=== PATIENT | female | born 1935 | race Hispanic/Latino ===

== ENCOUNTER 2016-08-23 16:19 | Observation (INO) | payer MEDICARE, OTHER ==
[2016-08-23 16:21] VITALS: BMI 24.8
[2016-08-23] MEDS ORDERED: Sodium Chloride 0.9% 500 ML IV STA (17:07)
--- NOTE | 2016-08-23 17:24 | ED PDOC ---
HPI: General Adult Time Seen by Provider: 08/23/16 16:44 Chief Complaint (Nursing): Upper Extremity Problem/Injury Chief Complaint (Provider): Seizure History Per: Patient History/Exam Limitations: no limitations Onset/Duration Of Symptoms: Days (Today) Have you had recent travel within the past 21 days to any of the following countries: [place], [place], [place] or [place]?: No Current Symptoms Are (Timing): Gone Now Additional Complaint(s): Pt. was at Dr. Diaz office for routine check up of her blood K and chronic back pain. There she had a shaking episode and lasted [address] Diaz witnessed and felt it was seizure so sent to the ED. No hx of seizure. Pt. currently has no dizziness on sitting still. Has chronic vertigo and on sudden movement gets room spinning. Pt. takes meclizine 2x a day for it. No headaches, weakness, numbness, tingles, fever, chest pain, palpitations, vision changes, syncope. Past Medical History Reviewed: Nursing Documentation, Vital Signs Vital Signs: Last Vital Signs Temp 97.4 F L 08/23/16 16:24 Pulse 105 H 08/23/16 17:00 Resp 18 08/23/16 17:00 BP 149/85 08/23/16 17:00 Pulse Ox 98 08/23/16 17:34 - Medical History PMH: HTN, Hypothyroidism (not compliant with medication) Denies: Asthma, Diabetes, HIV Other PMH: K level issues - Surgical History Surgical History: Denies: Pacemaker - Family History Family History: States: Unknown Family Hx - Living Arrangements Living Arrangements: With Family - Social History Current smoker - smoking cessation education provided: No Alcohol: None Drugs: Denies - Home Medications Home Medications: Ambulatory Orders Medication Instructions Recorded Aspirin [Aspirin EC] 81 mg PO DAILY #0 ect 08/13/14 amLODIPine [Norvasc] 2.5 mg PO DAILY #0 tab 08/13/14 Levothyroxine [Synthroid] 50 mcg PO DAILY 10/10/15 Potassium Chloride [Klor-Con 10] 10 meq PO DAILY 10/10/15 Desloratadine [Clarinex] 5 mg PO DAILY 07/08/16 Meclizine [Meclizine*] 25 mg PO Q6 PRN #20 tab 01/30/17 - Allergies Allergies/Adverse Reactions: Allergies Allergy/AdvReac Type Severity Reaction Status Date / Time high dose aspirin AdvReac PAIN Uncoded 08/23/16 16:23 Review of Systems ROS Statement: Except As Marked, All Systems Reviewed And Found Negative Neurological: Positive for: Seizures, Dizziness Physical Exam - Reviewed Nursing Documentation Reviewed: Yes Vital Signs Reviewed: Yes - Physical Exam Appears: Positive for: Non-toxic, No Acute Distress Head Exam: Positive for: ATRAUMATIC, NORMAL INSPECTION, NORMOCEPHALIC Skin: Positive for: Normal Color, Warm, DRY Eye Exam: Positive for: EOMI, Normal appearance, PERRL ENT: Positive for: Normal ENT Inspection Neck: Positive for: Normal, Painless ROM, Supple Cardiovascular/Chest: Positive for: Regular Rate, Rhythm. Negative for: Edema Respiratory: Positive for: CNT, Normal Breath Sounds Gastrointestinal/Abdominal: Positive for: Normal Exam, Bowel Sounds, Soft. Negative for: Tenderness Back: Positive for: Normal Inspection. Negative for: L CVA Tenderness, R CVA Tenderness Extremity: Positive for: Normal ROM. Negative for: Tenderness, Pedal Edema Neurologic/Psych: Positive for: Alert, knuckler II-XII, Oriented. Negative for: Motor/Sensory Deficits - Laboratory Results Result Diagrams: 08/23/16 17:32 08/23/16 17:32 Interpretation Of Abn Labs: no acute - ECG ECG: Positive for: Interpreted By Me, Viewed By Me ECG Rhythm: Positive for: Normal QRS, Normal ST Segment, Sinus Rhythm O2 Sat by Pulse Oximetry: 98 Pulse Ox Interpretation: Normal - Progress ED Course And Treament: 1900: Stable. AAOx3. Spoke with Dr. Diaz. Witnessed episode by him. Will admit tele obs. Will give further orders when pt. reaches floor. Disposition - Clinical Impression Clinical Impression: Seizure - Patient ED Disposition Is Patient to be Admitted: Yes Counseled Patient/Family Regarding: Studies Performed, Diagnosis - Disposition Disposition Time: 19:06 Condition: FAIR - POA Present On Arrival: None
[2016-08-23 17:46] LABS: BASO % 0.5 % (0.0-2.0); EOS # 0.1 K/uL (0.0-0.7); LYMPH # 2.1 K/uL (1.0-4.3); LYMPH % 32.8 % (20.0-40.0); MEAN CELL VOLUME 87.6 fl (81.0-99.0); MEAN CORPUSCULAR HEMOGLOBIN 30.1 pg (27.0-31.0); MEAN CORPUSCULAR HGB CONC 34.4 g/dL (33.0-37.0); MEAN PLATELET VOLUME 8.4 fl (7.2-11.7); MONO # 0.4 K/uL (0.0-0.8); NEUT # 3.8 K/uL (1.8-7.0); NEUT % 58.7 % (50.0-75.0); NRBC % 0.1 % (0.0-0.0); RED CELL DISTRIBUTION WIDTH 13.6 % (11.5-14.5); WHITE BLOOD COUNT 6.4 K/uL (4.8-10.8)
[2016-08-23 18:16] LABS: PARTIAL THROMBOPLASTIN TIME 25.9 SECONDS (23.3-32.5)
[2016-08-23 18:18] LABS: ALKALINE PHOSPHATASE 108 U/L (38-126); ALT/SGPT 127 U/L (9-52); AST/SGOT 117 U/L (14-36); BILIRUBIN,TOTAL 1.1 mg/dl (0.2-1.3); BLOOD UREA NITROGEN 16 mg/dl (7-17); CALCIUM 9.7 mg/dL (8.4-10.2); CARBON DIOXIDE 26 mmol/L (22-30); CHLORIDE 104 mmol/L (98-107); GFR AFRICAN-AMERICAN > 60; GLUCOSE,RANDOM 93 mg/dL (65-105); POTASSIUM 3.5 MMOL/L (3.6-5.0); SODIUM 139 mmol/l (132-148); TOTAL PROTEIN 7.9 G/DL (6.3-8.2)
--- NOTE | 2016-08-23 18:54 | CT ---
PROCEDURE: CT HEAD WITHOUT CONTRAST. HISTORY: headache COMPARISON: Comparison is made to the previous study dated 07/08/2026 TECHNIQUE: Axial computed tomography images were obtained through the head/brain without intravenous contrast. Radiation dose: Total exam DLP = 826.21 mGy-cm. FINDINGS: HEMORRHAGE: No intracranial hemorrhage. BRAIN: Foci of encephalomalacia at the parasagittal inferior frontal lobes are again seen suggestive of prior injury. Moderate atrophy and moderate chronic microvascular white matter ischemic disease are again seen. VENTRICLES: Unremarkable. No hydrocephalus. CALVARIUM: Unremarkable. PARANASAL SINUSES: Unremarkable as visualized. No significant inflammatory changes. MASTOID AIR CELLS: Unremarkable as visualized. No inflammatory changes. OTHER FINDINGS: None. IMPRESSION: No evidence of acute intracranial hemorrhage intracranial collection mass effect or midline shift. No significant interval change compared to the previous study dated 07/08/2016 as described above.
[2016-08-24 00:25] VITALS: RESP 18
[2016-08-24 00:55] LABS: RBC URINE < 1 /hpf (0-3); URINE BILIRUBIN NEGATIVE (NEGATIVE); URINE BLOOD NEGATIVE (NEGATIVE); URINE COLOR STRAW (YELLOW); URINE GLUCOSE (UA) NEG (Normal); URINE KETONE NEGATIVE (NEGATIVE); URINE LEUKOCYTE ESTERASE NEG Leu/uL (Negative); URINE PROTEIN NEGATIVE (NEGATIVE); URINE UROBILINOGEN 0.2-1.0 mg/dL (0.2-1.0); WBC URINE 1 /hpf (0-5)
[2016-08-24 08:31] LABS: THYROID STIMULATING HORMONE 4.46 mIU/ML (0.46-4.68)
[2016-08-24] MEDS ORDERED: Potassium Chloride 10 mEq ER Tab PO SCH (09:00)
[2016-08-24] MEDS ORDERED: Enoxaparin 40 mg Syringe SC SCH (09:00)
[2016-08-24] MEDS ORDERED: Levothyroxine 75 MCG TAB PO SCH (09:00)
[2016-08-24 10:06] VITALS: O2SAT 96
[2016-08-24] MEDS ORDERED: Gadodiamide 287 MG/ML VIAL (15ML) IV ONE (10:17)
[2016-08-24 12:14] LABS: BLOOD UREA NITROGEN 16 mg/dl (7-17); CARBON DIOXIDE 24 mmol/L (22-30); CHLORIDE 107 mmol/L (98-107); GFR AFRICAN-AMERICAN > 60; GLUCOSE,RANDOM 120 mg/dL (65-105); POTASSIUM 3.2 MMOL/L (3.6-5.0); SODIUM 137 mmol/l (132-148)
[2016-08-24 13:08] VITALS: BP 155/80; PULSE 91; TEMP 98.4
[2016-08-24] MEDS ORDERED: Potassium Chloride 40 mEq/30 ml LIQ UD PO ONE (13:22)
--- NOTE | 2016-08-24 13:35 | MRI ---
PROCEDURE: MRI BRAIN WITH AND WITHOUT CONTRAST HISTORY: seizure COMPARISON: August 08, 2016 MRI, CT scan head 08/23/2016 TECHNIQUE: Multiplanar, multisequence MR images of the brain were obtained with and without intravenous contrast enhancement. FINDINGS: HEMORRHAGE: None DWI: No evidence of an acute or early subacute infarction. BRAIN PARENCHYMA: No mass,mass effect or edema. Moderately severe cerebral cortical atrophy is once again noted. In addition moderate microvascular small-vessel changes are seen throughout the white matter tracts. 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 ENHANCEMENT: No abnormal intracranial enhancement. VENTRICLES: Unremarkable. No hydrocephalus. CRANIUM: Unremarkable. ORBITS: Grossly unremarkable. PARANASAL SINUSES/MASTOIDS: Clear VASCULAR SYSTEM: Skull base flow voids intact. OTHER FINDINGS: None . IMPRESSION: Moderate cerebral atrophy and small vessel change in the white matter tracts. No evidence of recent infarct or mass lesion.
--- NOTE | 2016-08-24 13:46 | CP.PCM.HP ---
History of Present Illness - History of Present Illness History of Present Illness: Pt. was seen in my office for routine check up of her blood K and chronic back pain. There she had a shaking episode and lasted 10 min. I witnessed and felt that was possible seizure so sent to the ED. No hx of seizure. Pt. currently has no dizziness on sitting still. Has chronic vertigo and on sudden movement gets room spinning. Pt. takes meclizine 2x a day for it. No headaches, weakness, numbness, tingles, fever, chest pain, palpitations, vision changes, syncope. Patient she had a recent EEG as per Dr Florentino was normal. The MRI does not reveled any acute condition. 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 Will increase the dose of antivert and hold Ambien. The patient present with a mild form of hypokalemia with no EKG changes. Will dc home. Will follow with neuro. Advice ENT f/u and renal for hypokalemia. Present on Admission - Present on Admission Any Indicators Present on Admission: No Review of Systems - Constitutional Constitutional: As Per HPI - EENT Eyes: As Per HPI Nose/Mouth/Throat: As Per HPI - Cardiovascular Cardiovascular: As Per HPI - Respiratory Respiratory: As Per HPI - Gastrointestinal Gastrointestinal: As Per HPI - Musculoskeletal Musculoskeletal: As Per HPI - Neurological Neurological: As Per HPI - Endocrine Endocrine: As Per HPI Past Patient History - Infectious Disease Hx of Infectious Diseases: None - Tetanus Immunizations Tetanus Immunization: Unknown - Past Medical History & Family History Past Medical History?: Yes - Past Social History Smoking Status: Never Smoked - CARDIAC Hx Cardiac Disorders: Yes Hx Hypertension: Yes - PULMONARY Hx Respiratory Disorders: Yes - NEUROLOGICAL Hx Neurological Disorder: Yes Hx Dizziness: Yes - HEENT Hx HEENT Problems: No - RENAL Hx Chronic Kidney Disease: Yes Hx Kidney Stones: Yes - ENDOCRINE/METABOLIC Hx Endocrine Disorders: Yes Hx Hypothyroidism: Yes - HEMATOLOGICAL/ONCOLOGICAL Hx Blood Disorders: No Hx AIDS: No Hx Human Immunodeficiency Virus (HIV): No - INTEGUMENTARY Hx Dermatological Problems: No - MUSCULOSKELETAL/RHEUMATOLOGICAL Hx Musculoskeletal Disorders: Yes Hx Falls: No - GASTROINTESTINAL Hx Gastrointestinal Disorders: No - GENITOURINARY/GYNECOLOGICAL Hx Genitourinary Disorders: No - PSYCHIATRIC Hx Psychophysiologic Disorder: No Hx Substance Use: No - SURGICAL HISTORY Hx Surgeries: Yes (renal lithotripsy 2 years ago) Hx Cataract Extraction: Yes Other/Comment: Lithotripsy 2 years ago, gallbladder - ANESTHESIA Hx Anesthesia: Yes Hx Anesthesia Reactions: No Meds Allergies/Adverse Reactions: Allergies Allergy/AdvReac Type Severity Reaction Status Date / Time high dose aspirin AdvReac PAIN Uncoded 08/23/16 16:23 Physical Exam - Constitutional Appears: Non-toxic - Head Exam Head Exam: ATRAUMATIC, NORMAL INSPECTION, NORMOCEPHALIC - Eye Exam Eye Exam: Normal appearance, PERRL - ENT Exam ENT Exam: Mucous Membranes Moist - Neck Exam Neck exam: Positive for: Full Rom - Respiratory Exam Respiratory Exam: Clear to Auscultation Bilateral - Cardiovascular Exam Cardiovascular Exam: REGULAR RHYTHM, +S1, +S2 - GI/Abdominal Exam GI & Abdominal Exam: Normal Bowel Sounds - Extremities Exam Extremities exam: Positive for: normal inspection - Neurological Exam Neurological exam: Alert, CN II-XII Intact, Normal Gait, Oriented x3, Reflexes Normal - Psychiatric Exam Psychiatric exam: Normal Affect - Skin Skin Exam: Normal Color Results - Vital Signs Recent Vital Signs: Last Vital Signs Temp 98.4 F 08/24/16 13:07 Pulse 91 H 08/24/16 13:07 Resp 18 08/24/16 13:07 BP 155/80 H 08/24/16 13:07 Pulse Ox 96 08/24/16 13:07 - Labs Result Diagrams: 08/23/16 17:32 08/24/16 11:30 Labs: Laboratory Results - last 24 hr 08/24/16 08/24/16 08/24/16 00:35 07:30 11:30 ESR 33 H Sodium 137 Potassium 3.2 L Chloride 107 Carbon Dioxide 24 Anion Gap 9 L BUN 16 Creatinine 0.5 L Est GFR ( Amer) > 60 Est GFR (Non-Af Amer) > 60 Random Glucose 120 H Calcium 9.0 Troponin I 0.0130 < 0.0120 Vitamin B12 > 1000 H TSH 3rd Generation 4.46 Urine Color Straw Urine Clarity Clear Urine pH 8.0 Ur Specific [place] 1.005 Urine Protein Negative Urine Glucose (UA) Neg Urine Ketones Negative Urine Blood Negative Urine Nitrate Negative Urine Bilirubin Negative Urine Urobilinogen 0.2-1.0 Ur Leukocyte Esterase Neg Urine RBC (Auto) < 1 Urine Microscopic WBC 1 Assessment & Plan (1) Seizure Status: Ruled-out (2) DVT prophylaxis Status: Acute (3) HTN (hypertension) Status: Chronic (4) Hypothyroid Status: Chronic (5) Palpitations Status: Resolved (6) Vertigo Status: Chronic (7) Anxiety Status: Chronic - Assessment and Plan (Free Text) Plan: Patient stable for dc Plan as above
[2016-08-24] MEDS ORDERED: Potassium Chloride 20 mEq/15 ml LIQ UD PO ONE (14:00)
[2016-08-24] MEDS ORDERED: [UNRECOGNIZED DRUG - REMARK] PO SCH (15:00)
[2016-08-24] MEDS ORDERED: Pantoprazole 40 mg EC Tab PO SCH (15:00)
[2016-08-24] MEDS ORDERED: Multivitamin With Minerals Tab PO SCH (15:00)
[2016-08-24] MEDS ORDERED: LOTEPREDNOL ETABONATE BOTHEYES SCH (17:00)
[2016-08-24 17:18] LABS: FOLATE > 20.0 ng/mL
[2016-08-24 17:39] LABS: CORTISOL AM 14.9 ug/dL (4.46-22.7)
--- NOTE | 2016-08-26 10:08 | CARD ---
APPROVED REPORT EKG Measurement Heart [id number] [id number] <Conclusion> Sinus tachycardia Otherwise normal ECG
== END 2016-08-24 15:30 | disposition home or self-care (01) ==
LOC: H.ER 16:19 → H.ERHOLD 19:03 → H.TEL 21:28
PROVIDERS: ADMIT Internal Medicine; ATTEND Internal Medicine
DX: R42 Dizziness and giddiness (principal); E87.6 Hypokalemia; R00.2 Palpitations; F41.9 Anxiety disorder, unspecified; G89.29 Other chronic pain; E03.9 Hypothyroidism, unspecified; I10 Essential (primary) hypertension; Z91.14 Patient's other noncompliance with medication regimen; Z79.82 Long term (current) use of aspirin
CPT/HCPCS: 36415; 70450; 70552; 80048; 80053; 81003; 82088; 82164; 82533; 82607; 82746; 82948; 83036; 84133; 84146; 84443; 84484; 85025; 85610; 85651; 85730; 86140; 99284; A9579; G0378; J1650; J7040

== ENCOUNTER 2017-07-10 19:50 | Emergency (ER) | payer MEDICARE ==
[2017-07-10 19:50] VITALS: BMI 24.8
[2017-07-10 20:16] VITALS: RESP 20; TEMP 99.2; O2SAT 99
--- NOTE | 2017-07-10 21:20 | ED PDOC ---
HPI: Hypertension/Hypotension Time Seen by Provider: 07/10/17 20:45 Chief Complaint (Nursing): High Blood Pressure Chief Complaint (Provider): High Blood Pressure History Per: Patient History/Exam Limitations: no limitations Onset/Duration Of Symptoms: Days (x today) Current Symptoms Are (Timing): Still Present Additional Complaint(s): Symone is an 82 year old female, with a history of high blood pressure, hypothyroidism, and anxiety, who presents to the emergency department for palpitations today. Patient reports she checked her blood pressure at home and measured at 190 systolic. Blood pressure was high despite Dr. Diaz doubling AmLODIPine from 2.5mg to 5 mg. Currently has shortness of breath and feels she cannot breath. PMD: Luis F Diaz Past Medical History Reviewed: Historical Data, Nursing Documentation, Vital Signs Vital Signs: Last Vital Signs Temp 99.2 F 07/10/17 20:14 Pulse 106 H 07/10/17 20:14 Resp 20 07/10/17 20:14 BP 133/90 07/10/17 20:14 Pulse Ox 99 07/10/17 20:14 - Medical History PMH: HTN, Hypothyroidism, Kidney Stones, Chronic Kidney Disease Denies: Asthma, Diabetes, HIV - Surgical History Surgical History: Denies: Pacemaker - Family History Family History: States: Unknown Family Hx - Home Medications Home Medications: Ambulatory Orders Medication Instructions Recorded Aspirin [Aspirin EC] 81 mg PO DAILY #0 ect 08/13/14 amLODIPine [Norvasc] 2.5 mg PO DAILY #0 tab 08/13/14 Levothyroxine [Synthroid] 75 mcg PO DAILY 10/10/15 Potassium Chloride [Klor-Con 10] 10 meq PO DAILY 10/10/15 Desloratadine [Clarinex] 5 mg PO DAILY 07/08/16 Meclizine [Meclizine*] 25 mg PO Q6 PRN #20 tab 07/08/16 Cetirizine HCl [All Day Allergy 10 mg PO DAILY 08/23/16 Relief] Clonazepam [Klonopin] 0.5 mg PO HS 08/23/16 Esomeprazole Magnesium [Nexium] 40 mg PO DAILY 08/23/16 Iron/Folic Acid/C/B6/B12/Zinc 1 each PO DAILY 08/23/16 [Corvita 150 Tablet] Loteprednol Etabonate [Lotemax] 1 drop BOTHEYES BID 08/23/16 Naproxen [Naprosyn Tab] 375 mg PO DAILY PRN 08/23/16 Zolpidem [Ambien] 10 mg PO HS PRN 08/23/16 - Allergies Allergies/Adverse Reactions: Allergies Allergy/AdvReac Type Severity Reaction Status Date / Time high dose aspirin AdvReac PAIN Uncoded 08/23/16 16:23 Review of Systems ROS Statement: Except As Marked, All Systems Reviewed And Found Negative Respiratory: Positive for: Shortness of Breath Physical Exam - Reviewed Nursing Documentation Reviewed: Yes Vital Signs Reviewed: Yes - Physical Exam Appears: Positive for: Uncomfortable ((+): Appears Anxious) Head Exam: Positive for: ATRAUMATIC, NORMAL INSPECTION, NORMOCEPHALIC Skin: Positive for: Normal Color, Warm, Dry Eye Exam: Positive for: Normal appearance, EOMI, PERRL ENT: Positive for: Normal ENT Inspection Neck: Positive for: Normal Cardiovascular/Chest: Positive for: Regular Rate, Rhythm Respiratory: Positive for: Normal Breath Sounds. Negative for: Respiratory Distress Gastrointestinal/Abdominal: Positive for: Normal Exam, Soft. Negative for: Tenderness Back: Positive for: Normal Inspection Extremity: Positive for: Normal ROM. Negative for: Deformity Neurologic/Psych: Positive for: Alert, Oriented (x 3). Negative for: Motor/ Sensory Deficits - Laboratory Results Result Diagrams: 07/10/17 20:45 07/10/17 20:45 - ECG O2 Sat by Pulse Oximetry: 99 (RA) Pulse Ox Interpretation: Normal Medical Decision Making Medical Decision Making: Time: 20:46 Impression(s): Chest Pain vs. ACS, PE Plan: - EKG - B-Type Natriuretic Peptide - BMP - Troponin I - CBC - D-Dimer - Partial Thromboplastin Time - Prothrombin Time - Chest X-Ray - Klonopin 0.5 mg PO STAT Time: 21:49 Chest X-Ray FINDINGS: Limitations: Radiographic technique - mild. Lungs: No consolidation. Pleural space: No pleural effusion. No pneumothorax. Heart: Mild cardiomegaly. Mediastinum: Atherosclerosis of thoracic aorta. Bones/joints: No acute fracture. Mild scoliosis. Degenerative changes of shoulders and spine. Few healed rib fractures. Upper abdomen: Surgical clips within RIGHT upper quadrant. IMPRESSION: 1. Mild cardiomegaly. 2. If symptoms persist, consider CT for further evaluation. 3. Incidental/non-acute findings are described above. 2200 Given age and risk factors, will OBS patient for continuous cardiac monitoring and repeat troponin/bloodwork. Case discussed with Dr. Diaz. Scribe Attestation: Documented by Philip Castano, acting as a scribe for Byron Chiang MD. Provider Scribe Attestation: All medical record entries made by the Scribe were at my direction and personally dictated by me. I have reviewed the chart and agree that the record accurately reflects my personal performance of the history, physical exam, medical decision making, and the department course for this patient. I have also personally directed, reviewed, and agree with the discharge instructions and disposition. Disposition - Clinical Impression Clinical Impression: Palpitations, Chest pain - Disposition Disposition Time: 22:00 Condition: GUARDED Forms: [employer] (Yoruba)
--- NOTE | 2017-07-10 21:50 | RAD ---
EXAM: XR Chest, 1 View CLINICAL HISTORY: 82 years old, female; Signs and symptoms; Cough; Symptoms not specified; Additional info: Cp TECHNIQUE: Frontal view of the chest. COMPARISON: No relevant prior studies available. FINDINGS: Limitations: Radiographic technique - mild. Lungs: No consolidation. Pleural space: No pleural effusion. No pneumothorax. Heart: Mild cardiomegaly. Mediastinum: Atherosclerosis of thoracic aorta. Bones/joints: No acute fracture. Mild scoliosis. Degenerative changes of shoulders and spine. Few healed rib fractures. Upper abdomen: Surgical clips within RIGHT upper quadrant. IMPRESSION: 1. Mild cardiomegaly. 2. If symptoms persist, consider CT for further evaluation. 3. Incidental/non-acute findings are described above.
[2017-07-10 21:54] LABS: BASO % 0.6 % (0.0-2.0); HEMOGLOBIN 13.6 g/dL (12.0-16.0); LYMPH # 1.8 K/uL (1.0-4.3); MEAN CELL VOLUME 87.8 fl (81.0-99.0); MEAN CORPUSCULAR HGB CONC 33.1 g/dL (33.0-37.0); MEAN PLATELET VOLUME 8.9 fl (7.2-11.7); MONO # 0.5 K/uL (0.0-0.8); MONO % 9.8 % (0.0-10.0); NEUT # 2.5 K/uL (1.8-7.0); NEUT % 51.6 % (50.0-75.0); NRBC % 0.5 % (0.0-0.0); RBC 4.68 Mil/uL (3.80-5.20); RED CELL DISTRIBUTION WIDTH 13.6 % (11.5-14.5); WHITE BLOOD COUNT 4.8 K/uL (4.8-10.8)
[2017-07-10 22:05] LABS: BLOOD UREA NITROGEN 19 mg/dl (7-17); CALCIUM 9.4 mg/dL (8.4-10.2); GFR AFRICAN-AMERICAN > 60; GFR NON-AFRICAN AMERICAN > 60
[2017-07-10 22:10] LABS: INR 1.2 (0.9-1.2); PROTHROMBIN TIME 13.1 Seconds (9.8-13.1)
[2017-07-10 22:11] LABS: PARTIAL THROMBOPLASTIN TIME 37.7 Seconds (25.6-37.1)
[2017-07-10 22:16] LABS: B-TYPE NATRIURETIC PEPTIDE 109 pg/ml (0-900)
[2017-07-11 07:16] VITALS: BP 137/79; PULSE 86
--- NOTE | 2017-07-11 11:19 | CARD ---
APPROVED REPORT EKG Measurement Heart [id number] [place] [id number] <Conclusion> Sinus tachycardia Possible Left atrial enlargement Low voltage QRS Borderline ECG
== END 2017-07-11 00:24 | disposition left against medical advice (07) ==
LOC: H.ER 19:50
DX: R07.89 Other chest pain (principal); R00.2 Palpitations; I12.9 Hypertensive chronic kidney disease with stage 1 through stage 4 chronic kidney disease, or unspecified chronic kidney disease; E03.9 Hypothyroidism, unspecified; Z79.82 Long term (current) use of aspirin

== ENCOUNTER 2018-08-12 13:21 | Observation (INO) | payer MEDICARE, OTHER ==
[2018-08-12] MEDS ORDERED: Sodium Chloride 0.9% 1,000 ML IV STA (14:05)
--- NOTE | 2018-08-12 14:23 | ED PDOC ---
HPI: Back Time Seen by Provider: 08/12/18 13:53 Chief Complaint (Nursing): Back Pain Chief Complaint (Provider): Back Pain History Per: Patient, Family History/Exam Limitations: language barrier Onset/Duration Of Symptoms: Days (x1 day) Current Symptoms Are (Timing): Still Present Additional Complaint(s): Symone Back is a 83 year old female with a past medical history of HTN, hypothyroidism, kidney stone, and TIA, who presents to the emergency department complaining of severe right sided back pain, onset x1 day. Patient's family member, who was present in the room, states that he gave the patient naproxen yesterday and took her to the urgent care facility. They checked her urine and advised her to use a heating pad and take Tylenol only, which she took today. Patient has had no improvements in symptoms. She has had some associated diarrhea and chills, but denies any urinary problems, vomiting, or fever. Patient's family further states that there is a stomach virus going on in the family. PMD: Luis F Diaz Past Medical History Reviewed: Historical Data, Nursing Documentation Vital Signs: Last Vital Signs Temp 97.0 F L 08/12/18 13:23 Pulse 94 H 08/12/18 13:23 Resp 16 08/12/18 13:23 BP 173/83 H 08/12/18 13:23 Pulse Ox 97 08/12/18 13:23 - Medical History PMH: Anxiety, HTN, Hypothyroidism, Kidney Stones, Chronic Kidney Disease, TIA Denies: Asthma, Diabetes, HIV Other PMH: compression fracture of T-12 - Surgical History Surgical History: Appendectomy, Cholecystectomy Denies: Pacemaker - Family History Family History: States: Unknown Family Hx - Home Medications Home Medications: Ambulatory Orders Medication Instructions Recorded Aspirin [Aspirin EC] 81 mg PO DAILY #0 ect 08/13/14 Levothyroxine [Synthroid] 75 mcg PO DAILY 10/10/15 Potassium Chloride [Klor-Con 10] 10 meq PO DAILY 10/10/15 Cetirizine HCl [All Day Allergy 10 mg PO DAILY 08/23/16 Relief] Zolpidem [Ambien] 10 mg PO HS PRN 08/23/16 amLODIPine [Norvasc] 5 mg PO DAILY 07/10/17 - Allergies Allergies/Adverse Reactions: Allergies Allergy/AdvReac Type Severity Reaction Status Date / Time high dose aspirin AdvReac PAIN Uncoded 08/12/18 13:23 Review of Systems ROS Statement: Except As Marked, All Systems Reviewed And Found Negative Constitutional: Positive for: Chills. Negative for: Fever Gastrointestinal: Positive for: Diarrhea. Negative for: Vomiting Genitourinary Female: Negative for: Dysuria, Frequency, Incontinence, Hematuria Musculoskeletal: Positive for: Back Pain Physical Exam - Reviewed Nursing Documentation Reviewed: Yes Vital Signs Reviewed: Yes - Physical Exam Appears: Positive for: Non-toxic, Uncomfortable Head Exam: Positive for: ATRAUMATIC, NORMOCEPHALIC Skin: Positive for: Normal Color, Warm, Dry Eye Exam: Positive for: Normal appearance Cardiovascular/Chest: Positive for: Regular Rate, Rhythm. Negative for: Murmur Respiratory: Positive for: Normal Breath Sounds. Negative for: Respiratory Distress Gastrointestinal/Abdominal: Positive for: Tenderness (RLQ Tenderness) Back: Positive for: R CVA Tenderness (questionable ). Negative for: L CVA [place], Vertebral Tenderness Extremity: Positive for: Normal ROM. Negative for: Pedal Edema, Deformity Neurologic/Psych: Positive for: Alert, Oriented. Negative for: Motor/Sensory Deficits - Laboratory Results Result Diagrams: 08/12/18 14:40 08/12/18 14:40 - ECG ECG Rhythm: Positive for: Normal QRS, Sinus Rhythm (normal), Nonspecific Changes (ST) Rate: 83 O2 Sat by Pulse Oximetry: 97 (RA) Pulse Ox Interpretation: Normal - Progress Re-evaluation Time: 17:00 Condition: Re-examined, Improving,but remains with symptoms Medical Decision Making Medical Decision Making: Time: 1405 Impression: Right sided flank pain --Differential diagnosis includes but is not limited to UTI, Pyelonephritis, Nephrolithiasis Plan: --VBG shock panel --CT abdomen and pelvis --EKG --BMP --ED urine dipstick --CBC with differential --Toradol 15 mg IVP --Sodium chloride 1,000 ml --Blood culture --Urine culture --Urinalysis Time: 165 CT abd and pelvis FINDINGS: LOWER THORAX: Cardiomegaly. No pulmonary vascular congestion or pleural effusion. No definite infiltrate bilaterally. LIVER: Subtle lobular margins to the periphery of the liver suggests cirrhosis. No mass or intrahepatic biliary dilatation. GALLBLADDER AND BILE DUCTS: Prior cholecystectomy. PANCREAS: Unremarkable. No gross lesion or ductal dilatation. SPLEEN: Splenomegaly identified without mass, with the spleen measuring up to 13.4 cm ADRENALS: Unremarkable. No mass. KIDNEYS AND URETERS: Multiple bilateral renal cysts are identified including 3.3 cm midpole right renal cyst and a 2.7 cm midpole left renal cyst. Additional lucencies are seen in both renal parenchyma too small to characterize further. Intrarenal calculi are infrequent abut punctate in size at the right. A 6.0 mm upper pole intrarenal calculus is nonobstructive at the left. Prominent bilateral extrarenal pelves are identified at the right greater than left kidney. Interval removal prior left double-J ureteral stent. VASCULATURE: Nonaneurysmal abdominal aortic calcific atherosclerotic changes are identified. Further, extensive varices are identified at the this splenorenal venous distribution and very minimally at the gastrohepatic ligament indicating hepatofugal blood flow. BOWEL: Unremarkable. No obstruction. No gross mural thickening. APPENDIX: No CT evidence of appendicitis. PERITONEUM: Unremarkable. No free fluid. No free air. LYMPH NODES: Unremarkable. No enlarged lymph nodes. BLADDER: Unremarkable. REPRODUCTIVE: Unremarkable. BONES: Chronic anterior wedge compression fracture T12. Advanced multilevel degenerative disc disease is reiterated as well as facet arthropathy with stable degenerative grade 1 spondylolisthesis L5-S1. OTHER FINDINGS: None. IMPRESSION: 1. No obstructive uropathy bilaterally. Infrequent bilateral intrarenal calculi are identified which are nonobstructive. Bilateral renal cysts are noted as well as right greater than left extrarenal pelvis. Removal of prior left u reteral stent noted. 2. Cirrhotic liver with evidence of hepatofugal blood flow again evident. Ex tensive a pattern renal varices noted. Minimal gastrohepatic ligament varices evident. 3. Prior cholecystectomy reiterated. [address] Diaz who will admit to his service and assume care. Bridging orders will be placed to facilitate transfer. Scribe Attestation: Documented by Jayden Waters, acting as a scribe for Mary Gregory MD. Provider Scribe Attestation: All medical record entries made by the Scribe were at my direction and personally dictated by me. I have reviewed the chart and agree that the record accurately reflects my personal performance of the history, physical exam, medical decision making, and the department course for this patient. I have also personally directed, reviewed, and agree with the discharge instructions and disposition. Disposition - Clinical Impression Clinical Impression: Back pain - Patient ED Disposition Is Patient to be Admitted: Yes Discussed With : Luis F Diaz Doctor Will See Patient In The: Hospital Counseled Patient/Family Regarding: Studies Performed, Diagnosis - Disposition Disposition Time: 17:30 Condition: FAIR - Pt Status Changed To: Hospital Disposition Of: Observation - POA Present On Arrival: None
[2018-08-12 14:39] LABS: VENOUS BLOOD GAS BASE EXCESS 1.6 mmol/L (0.0-2.0); VENOUS BLOOD GAS PCO2 34 mmHg (40-60); VENOUS BLOOD GAS PO2 36 mm/Hg (30-55); VENOUS BLOOD PH 7.47 (7.32-7.43)
[2018-08-12 15:01] LABS: BASO % 0.4 % (0.0-2.0); EOS % 0.6 % (0.0-4.0); HEMOGLOBIN 14.9 g/dL (12.0-16.0); LYMPH # 1.1 K/uL (1.0-4.3); LYMPH % 24.2 % (20.0-40.0); MEAN CELL VOLUME 86.4 fl (81.0-99.0); MEAN CORPUSCULAR HEMOGLOBIN 29.7 pg (27.0-31.0); MEAN CORPUSCULAR HGB CONC 34.4 g/dL (33.0-37.0); MONO # 0.2 K/uL (0.0-0.8); MONO % 4.1 % (0.0-10.0); NEUT # 3.2 K/uL (1.8-7.0); NEUT % 70.7 % (50.0-75.0); NRBC % 0.2 % (0.0-0.0); RBC 5.01 Mil/uL (3.80-5.20); RED CELL DISTRIBUTION WIDTH 13.4 % (11.5-14.5); WHITE BLOOD COUNT 4.6 K/uL (4.8-10.8)
[2018-08-12 15:14] LABS: BLOOD UREA NITROGEN 16 mg/dl (7-17); CALCIUM 9.4 mg/dL (8.4-10.2); GFR NON-AFRICAN AMERICAN > 60
[2018-08-12] MEDS ORDERED: Potassium Chloride 20 mEq ER Tab PO ONE ×4 (15:16→19:54)
[2018-08-12] MEDS ORDERED: Iohexol 300 100 ML IJ ONE (16:02)
[2018-08-12 16:09] LABS: SQUAMOUS EPITHIAL < 1 /hpf (0-5); URINE BACTERIA RARE (<OCC); URINE BILIRUBIN NEGATIVE (NEGATIVE); URINE BLOOD SMALL (NEGATIVE); URINE CLARITY SLIGHTY-CLOUDY (Clear); URINE COLOR YELLOW (YELLOW); URINE GLUCOSE (UA) NEG (NEGATIVE); URINE HYALINE CAST 0-2 /hpf (0-2); URINE LEUKOCYTE ESTERASE NEG Leu/uL (Negative); URINE PROTEIN 100 mg/dL (NEGATIVE)
--- NOTE | 2018-08-12 16:59 | CT ---
Date of service: 08/12/2018 PROCEDURE: CT Abdomen and Pelvis with contrast HISTORY: right flank pain COMPARISON: None. TECHNIQUE: Following oral and intravenous contrast administration, a CT examination of the abdomen and pelvis was performed from the domes of the diaphragms to the symphysis pubis with reformatted datasets provided not only axial but also sagittal and coronal series. Contrast dose: Omnipaque 300, 85 cc Radiation dose: Total exam DLP = 242.83 mGy-cm. This CT exam was performed using one or more of the following dose reduction techniques: Automated exposure control, adjustment of the mA and/or kV according to patient size, and/or use of iterative reconstruction technique. FINDINGS: LOWER THORAX: Cardiomegaly. No pulmonary vascular congestion or pleural effusion. No definite infiltrate bilaterally. LIVER: Subtle lobular margins to the periphery of the liver suggests cirrhosis. No mass or intrahepatic biliary dilatation. GALLBLADDER AND BILE DUCTS: Prior cholecystectomy. PANCREAS: Unremarkable. No gross lesion or ductal dilatation. SPLEEN: Splenomegaly identified without mass, with the spleen measuring up to 13.4 cm ADRENALS: Unremarkable. No mass. KIDNEYS AND URETERS: Multiple bilateral renal cysts are identified including 3.3 cm midpole right renal cyst and a 2.7 cm midpole left renal cyst. Additional lucencies are seen in both renal parenchyma too small to characterize further. Intrarenal calculi are infrequent abut punctate in size at the right. A 6.0 mm upper pole intrarenal calculus is nonobstructive at the left. Prominent bilateral extrarenal pelves are identified at the right greater than left kidney. Interval removal prior left double-J ureteral stent. VASCULATURE: Nonaneurysmal abdominal aortic calcific atherosclerotic changes are identified. Further, extensive varices are identified at the this splenorenal venous distribution and very minimally at the gastrohepatic ligament indicating hepatofugal blood flow. BOWEL: Unremarkable. No obstruction. No gross mural thickening. APPENDIX: No CT evidence of appendicitis. PERITONEUM: Unremarkable. No free fluid. No free air. LYMPH NODES: Unremarkable. No enlarged lymph nodes. BLADDER: Unremarkable. REPRODUCTIVE: Unremarkable. BONES: Chronic anterior wedge compression fracture T12. Advanced multilevel degenerative disc disease is reiterated as well as facet arthropathy with stable degenerative grade 1 spondylolisthesis L5-S1. OTHER FINDINGS: None. IMPRESSION: 1. No obstructive uropathy bilaterally. Infrequent bilateral intrarenal calculi are identified which are nonobstructive. Bilateral renal cysts are noted as well as right greater than left extrarenal pelvis. Removal of prior left ureteral stent noted. 2. Cirrhotic liver with evidence of hepatofugal blood flow again evident. Extensive a pattern renal varices noted. Minimal gastrohepatic ligament varices evident. 3. Prior cholecystectomy reiterated.
[2018-08-12] MEDS ORDERED: Fluorescein 1 mg Ophthalmic Strip ONE (18:17)
[2018-08-12] MEDS ORDERED: Patient's Own Med (Zolpidem [Ambien] 10 MG) PO PRN (18:23)
[2018-08-12] MEDS ORDERED: Dexamethasone 4 mg/1 ml ONE (21:48)
[2018-08-12] MEDS ORDERED: Morphine 4 MG/ML VIAL ONE (21:48)
[2018-08-12] MEDS: Morphine 4 MG/ML VIAL IVP PRN (22:22)
[2018-08-12] MEDS ORDERED: Lidocaine 5% Patch TD ONE (22:51)
[2018-08-12] MEDS ORDERED: Lidocaine 5% Patch TD SCH ×2 (23:00)
[2018-08-13] MEDS: Lidocaine 5% Patch TD SCH ×2 (01:15→22:36)
[2018-08-13 07:00] LABS: BASO % 0.1 % (0.0-2.0); EOS % 0.1 % (0.0-4.0); HEMOGLOBIN 14.8 g/dL (12.0-16.0); LYMPH # 0.7 K/uL (1.0-4.3); LYMPH % 18.6 % (20.0-40.0); MEAN CELL VOLUME 86.9 fl (81.0-99.0); MEAN CORPUSCULAR HEMOGLOBIN 29.8 pg (27.0-31.0); MEAN CORPUSCULAR HGB CONC 34.3 g/dL (33.0-37.0); MONO # 0.1 K/uL (0.0-0.8); MONO % 1.8 % (0.0-10.0); NEUT # 2.8 K/uL (1.8-7.0); NEUT % 79.4 % (50.0-75.0); NRBC % 0.3 % (0.0-0.0); RBC 4.98 Mil/uL (3.80-5.20); RED CELL DISTRIBUTION WIDTH 13.4 % (11.5-14.5); WHITE BLOOD COUNT 3.6 K/uL (4.8-10.8)
[2018-08-13] MEDS: Levothyroxine 75 MCG TAB PO SCH (07:06)
[2018-08-13 07:10] LABS: ALBUMIN 3.9 g/dL (3.5-5.0); ALT/SGPT 108 U/L (9-52); AST/SGOT 108 U/L (14-36); BILIRUBIN,DIRECT 0.4 mg/ml (0.0-0.4); BLOOD UREA NITROGEN 12 mg/dl (7-17); CALCIUM 9.2 mg/dL (8.4-10.2); GFR NON-AFRICAN AMERICAN > 60
[2018-08-13] MEDS: Morphine 4 MG/ML VIAL IVP PRN ×2 (08:56→13:53)
[2018-08-13] MEDS: Potassium Chloride 10 mEq ER Tab PO SCH (08:58)
[2018-08-13 11:43] VITALS: BMI 23.5
--- NOTE | 2018-08-13 12:07 | CP.PCM.CON ---
History of Present Illness - History of Present Illness History of Present Illness: Patient seen and examined for back pain. Patient described as localized, right- sided back pain currently without radiculopathy which patient has had in the past. To get MRI today. Patient unable to describe the character of the pain. For possible injection tomorrow. Past Patient History - Infectious Disease Hx of Infectious Diseases: None - Tetanus Immunizations Tetanus Immunization: Unknown - Past Medical History & Family History Past Medical History?: Yes - Past Social History Smoking Status: Light Smoker < 10 Cigarettes Daily - CARDIAC Hx Cardiac Disorders: Yes Hx Hypertension: Yes - PULMONARY Hx Respiratory Disorders: No Hx Asthma: No - NEUROLOGICAL Hx Neurological Disorder: Yes Hx Transient Ischemic Attacks (TIA): Yes - HEENT Hx HEENT Problems: Yes Hx Sinusitis: Yes Other/Comment: Use eyeglasses - RENAL Hx Chronic Kidney Disease: Yes - ENDOCRINE/METABOLIC Hx Endocrine Disorders: Yes - HEMATOLOGICAL/ONCOLOGICAL Hx Blood Disorders: No Hx Human Immunodeficiency Virus (HIV): No - INTEGUMENTARY Hx Dermatological Problems: No - MUSCULOSKELETAL/RHEUMATOLOGICAL Hx Musculoskeletal Disorders: Yes Hx Falls: Yes - GASTROINTESTINAL Hx Gastrointestinal Disorders: No - GENITOURINARY/GYNECOLOGICAL Hx Genitourinary Disorders: No - PSYCHIATRIC Hx Psychophysiologic Disorder: No Hx Substance Use: No - SURGICAL HISTORY Hx Surgeries: Yes Hx Appendectomy: Yes Hx Cholecystectomy: Yes - ANESTHESIA Hx Anesthesia: Yes Hx Anesthesia Reactions: No Hx Malignant Hyperthermia: No Has any member of the family had a problem w/ anesthesia?: No Meds Allergies/Adverse Reactions: Allergies Allergy/AdvReac Type Severity Reaction Status Date / Time high dose aspirin AdvReac PAIN Uncoded 08/12/18 13:23 - Medications Medications: Current Medications Amlodipine Besylate (Norvasc) 5 mg PO DAILY [facility] Last Admin: 08/13/18 08:57 Dose: 5 mg Aspirin (Ecotrin) 81 mg PO DAILY [facility] Last Admin: 08/13/18 08:58 Dose: 81 mg Dexamethasone (Decadron) 4 mg PO Q12 [facility] Last Admin: 08/13/18 08:58 Dose: 4 mg Diazepam (Valium) 2 mg PO Q8 PRN PRN Reason: Muscle spasm Last Admin: 08/13/18 08:56 Dose: 2 mg Enoxaparin Sodium (Lovenox) 40 mg SC DAILY [facility]; Protocol Levothyroxine Sodium (Synthroid) 75 mcg PO DAILY@0630 [facility] Last Admin: 08/13/18 07:06 Dose: 75 mcg Lidocaine (Lidoderm) 1 ea TD Q24H [facility] Last Admin: 08/13/18 01:15 Dose: 1 ea Loratadine (Claritin) 10 mg PO DAILY [facility] Last Admin: 08/13/18 08:59 Dose: 10 mg Morphine Sulfate (Morphine) 4 mg IVP Q4 PRN PRN Reason: Pain, severe (8-10) Last Admin: 08/13/18 08:56 Dose: 4 mg Potassium Chloride (Klor-Con 10) 10 meq PO DAILY [facility] Last Admin: 08/13/18 08:58 Dose: 10 meq Results - Vital Signs Recent Vital Signs: Last Vital Signs Temp 97.5 F L 08/13/18 08:14 Pulse 93 H 08/13/18 08:57 Resp 20 08/13/18 08:14 BP 155/79 H 08/13/18 08:57 Pulse Ox 97 08/13/18 08:14 - Labs Result Diagrams: 08/13/18 06:40 08/13/18 06:40 Labs: Laboratory Results - last 24 hr 08/12/18 08/12/18 08/12/18 14:09 14:40 14:40 WBC 4.6 L RBC 5.01 Hgb 14.9 Hct 43.3 MCV 86.4 MCH 29.7 MCHC 34.4 RDW 13.4 Plt Count 95 L MPV 9.0 Neut % (Auto) 70.7 Lymph % (Auto) 24.2 [place] % (Auto) 4.1 Eos % (Auto) 0.6 Baso % (Auto) 0.4 Neut # (Auto) 3.2 Lymph # (Auto) 1.1 [place] # (Auto) 0.2 Eos # (Auto) 0.0 Baso # (Auto) 0.0 pO2 36 VBG pH 7.47 H VBG pCO2 34 L VBG HCO3 25.4 VBG Total CO2 25.7 VBG O2 Sat (Calc) 76.6 H VBG Base Excess 1.6 VBG Potassium 3.2 L Sodium 136.0 140 Chloride 104.0 100 Glucose 156 H Lactate 1.9 FiO2 21.0 Potassium 3.3 L Carbon Dioxide 24 Anion Gap 19 BUN 16 Creatinine 0.7 Est GFR ( Amer) > 60 Est GFR (Non-Af Amer) > 60 Random Glucose 155 H Calcium 9.4 Total Bilirubin Direct Bilirubin AST ALT Alkaline Phosphatase Ammonia Total Protein Albumin Globulin Albumin/Globulin Ratio TSH 3rd Generation Venous Blood Potassium 3.2 L Urine Color Urine Clarity Urine pH Ur Specific [place] Urine Protein Urine Glucose (UA) Urine Ketones Urine Blood Urine Nitrate Urine Bilirubin Urine Urobilinogen Ur Leukocyte Esterase Urine RBC (Auto) Urine Microscopic WBC Ur Squamous Epith Cells Urine Bacteria Hyaline Casts 08/12/18 08/13/18 08/13/18 15:40 06:40 06:40 WBC 3.6 L RBC 4.98 Hgb 14.8 Hct 43.2 MCV 86.9 MCH 29.8 MCHC 34.3 RDW 13.4 Plt Count 114 L MPV 9.0 Neut % (Auto) 79.4 H Lymph % (Auto) 18.6 L [place] % (Auto) 1.8 Eos % (Auto) 0.1 Baso % (Auto) 0.1 Neut # (Auto) 2.8 Lymph # (Auto) 0.7 L [place] # (Auto) 0.1 Eos # (Auto) 0.0 Baso # (Auto) 0.0 pO2 VBG pH VBG pCO2 VBG HCO3 VBG Total CO2 VBG O2 Sat (Calc) VBG Base Excess VBG Potassium Sodium 139 Chloride 105 Glucose Lactate FiO2 Potassium 4.4 Carbon Dioxide 23 Anion Gap 15 BUN 12 Creatinine 0.6 L Est GFR ( Amer) > 60 Est GFR (Non-Af Amer) > 60 Random Glucose 136 H Calcium 9.2 Total Bilirubin 1.3 Direct Bilirubin 0.4 AST 108 H ALT 108 H Alkaline Phosphatase 146 H Ammonia Total Protein 7.9 Albumin 3.9 Globulin 4.0 H Albumin/Globulin Ratio 1.0 TSH 3rd Generation 2.18 Venous Blood Potassium Urine Color Yellow Urine Clarity Slighty-cloudy Urine pH 6.0 Ur Specific [place] 1.015 Urine Protein 100 Urine Glucose (UA) Neg Urine Ketones 20 Urine Blood Small Urine Nitrate Negative Urine Bilirubin Negative Urine Urobilinogen 4.0 H Ur Leukocyte Esterase Neg Urine RBC (Auto) 2 Urine Microscopic WBC 3 Ur Squamous Epith Cells < 1 Urine Bacteria Rare Hyaline Casts 0-2 08/13/18 06:40 WBC RBC Hgb Hct MCV MCH MCHC RDW Plt Count MPV Neut % (Auto) Lymph % (Auto) [place] % (Auto) Eos % (Auto) Baso % (Auto) Neut # (Auto) Lymph # (Auto) [place] # (Auto) Eos # (Auto) Baso # (Auto) pO2 VBG pH VBG pCO2 VBG HCO3 VBG Total CO2 VBG O2 Sat (Calc) VBG Base Excess VBG Potassium Sodium Chloride Glucose Lactate FiO2 Potassium Carbon Dioxide Anion Gap BUN Creatinine Est GFR ( Amer) Est GFR (Non-Af Amer) Random Glucose Calcium Total Bilirubin Direct Bilirubin AST ALT Alkaline Phosphatase Ammonia 20 Total Protein Albumin Globulin Albumin/Globulin Ratio TSH 3rd Generation Venous Blood Potassium Urine Color Urine Clarity Urine pH Ur Specific [place] Urine Protein Urine Glucose (UA) Urine Ketones Urine Blood Urine Nitrate Urine Bilirubin Urine Urobilinogen Ur Leukocyte Esterase Urine RBC (Auto) Urine Microscopic WBC Ur Squamous Epith Cells Urine Bacteria Hyaline Casts
--- NOTE | 2018-08-13 12:11 | CP.PCM.HP ---
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 The patient had same naproxen yesterday and took her to the urgent care facility. Patient has had no improvements in symptoms. At present she still c/o same severe pain in the rt side of the lower back. She received morphine, steroids,benzo with no significant improvement. An MRI pending. Present on Admission - Present on Admission Any Indicators Present on Admission: No Review of Systems - Constitutional Constitutional: As Per HPI - EENT Eyes: As Per HPI - Cardiovascular Cardiovascular: As Per HPI - Respiratory Respiratory: As Per HPI - Gastrointestinal Gastrointestinal: As Per HPI - Musculoskeletal Musculoskeletal: Arthralgias, Back Pain, Myalgias, Radiating Pain into Limb - Integumentary Integumentary: As Per HPI - Neurological Neurological: As Per HPI - Psychiatric Psychiatric: Anxiety Past Patient History - Infectious Disease Hx of Infectious Diseases: None - Tetanus Immunizations Tetanus Immunization: Unknown - Past Medical History & Family History Past Medical History?: Yes - Past Social History Smoking Status: Light Smoker < 10 Cigarettes Daily - CARDIAC Hx Cardiac Disorders: Yes Hx Hypertension: Yes - PULMONARY Hx Respiratory Disorders: No Hx Asthma: No - NEUROLOGICAL Hx Neurological Disorder: Yes Hx Transient Ischemic Attacks (TIA): Yes - HEENT Hx HEENT Problems: Yes Hx Sinusitis: Yes Other/Comment: Use eyeglasses - RENAL Hx Chronic Kidney Disease: Yes - ENDOCRINE/METABOLIC Hx Endocrine Disorders: Yes - HEMATOLOGICAL/ONCOLOGICAL Hx Blood Disorders: No Hx Human Immunodeficiency Virus (HIV): No - INTEGUMENTARY Hx Dermatological Problems: No - MUSCULOSKELETAL/RHEUMATOLOGICAL Hx Musculoskeletal Disorders: Yes Hx Falls: Yes - GASTROINTESTINAL Hx Gastrointestinal Disorders: No - GENITOURINARY/GYNECOLOGICAL Hx Genitourinary Disorders: No - PSYCHIATRIC Hx Psychophysiologic Disorder: No Hx Substance Use: No - SURGICAL HISTORY Hx Surgeries: Yes Hx Appendectomy: Yes Hx Cholecystectomy: Yes - ANESTHESIA Hx Anesthesia: Yes Hx Anesthesia Reactions: No Hx Malignant Hyperthermia: No Has any member of the family had a problem w/ anesthesia?: No Meds Allergies/Adverse Reactions: Allergies Allergy/AdvReac Type Severity Reaction Status Date / Time high dose aspirin AdvReac PAIN Uncoded 08/12/18 13:23 Physical Exam - Constitutional Appears: No Acute Distress Additional comments: for the pain - Head Exam Head Exam: ATRAUMATIC, NORMAL INSPECTION, NORMOCEPHALIC - Eye Exam Eye Exam: Normal appearance - ENT Exam ENT Exam: Mucous Membranes Moist, Normal Exam - Neck Exam Neck exam: Positive for: Full Rom - Respiratory Exam Respiratory Exam: Clear to Auscultation Bilateral - Cardiovascular Exam Cardiovascular Exam: REGULAR RHYTHM, +S1, +S2 - GI/Abdominal Exam GI & Abdominal Exam: Normal Bowel Sounds - Back Exam Back exam: muscle spasm, tenderness, vertebral tenderness - Neurological Exam Neurological exam: Abnormal Gait, Alert, CN II-XII Intact, Oriented x3 - Skin Skin Exam: Normal Color Results - Vital Signs Recent Vital Signs: Last Vital Signs Temp 97.5 F L 08/13/18 08:14 Pulse 93 H 08/13/18 08:57 Resp 20 08/13/18 08:14 BP 155/79 H 08/13/18 08:57 Pulse Ox 97 08/13/18 08:14 - Labs Result Diagrams: 08/13/18 06:40 08/13/18 06:40 Labs: Laboratory Results - last 24 hr 08/12/18 08/12/18 08/12/18 14:09 14:40 14:40 WBC 4.6 L RBC 5.01 Hgb 14.9 Hct 43.3 MCV 86.4 MCH 29.7 MCHC 34.4 RDW 13.4 Plt Count 95 L MPV 9.0 Neut % (Auto) 70.7 Lymph % (Auto) 24.2 [place] % (Auto) 4.1 Eos % (Auto) 0.6 Baso % (Auto) 0.4 Neut # (Auto) 3.2 Lymph # (Auto) 1.1 [place] # (Auto) 0.2 Eos # (Auto) 0.0 Baso # (Auto) 0.0 pO2 36 VBG pH 7.47 H VBG pCO2 34 L VBG HCO3 25.4 VBG Total CO2 25.7 VBG O2 Sat (Calc) 76.6 H VBG Base Excess 1.6 VBG Potassium 3.2 L Sodium 136.0 140 Chloride 104.0 100 Glucose 156 H Lactate 1.9 FiO2 21.0 Potassium 3.3 L Carbon Dioxide 24 Anion Gap 19 BUN 16 Creatinine 0.7 Est GFR ( Amer) > 60 Est GFR (Non-Af Amer) > 60 Random Glucose 155 H Calcium 9.4 Total Bilirubin Direct Bilirubin AST ALT Alkaline Phosphatase Ammonia Total Protein Albumin Globulin Albumin/Globulin Ratio TSH 3rd Generation Venous Blood Potassium 3.2 L Urine Color Urine Clarity Urine pH Ur Specific [place] Urine Protein Urine Glucose (UA) Urine Ketones Urine Blood Urine Nitrate Urine Bilirubin Urine Urobilinogen Ur Leukocyte Esterase Urine RBC (Auto) Urine Microscopic WBC Ur Squamous Epith Cells Urine Bacteria Hyaline Casts 08/12/18 08/13/18 08/13/18 15:40 06:40 06:40 WBC 3.6 L RBC 4.98 Hgb 14.8 Hct 43.2 MCV 86.9 MCH 29.8 MCHC 34.3 RDW 13.4 Plt Count 114 L MPV 9.0 Neut % (Auto) 79.4 H Lymph % (Auto) 18.6 L [place] % (Auto) 1.8 Eos % (Auto) 0.1 Baso % (Auto) 0.1 Neut # (Auto) 2.8 Lymph # (Auto) 0.7 L [place] # (Auto) 0.1 Eos # (Auto) 0.0 Baso # (Auto) 0.0 pO2 VBG pH VBG pCO2 VBG HCO3 VBG Total CO2 VBG O2 Sat (Calc) VBG Base Excess VBG Potassium Sodium 139 Chloride 105 Glucose Lactate FiO2 Potassium 4.4 Carbon Dioxide 23 Anion Gap 15 BUN 12 Creatinine 0.6 L Est GFR ( Amer) > 60 Est GFR (Non-Af Amer) > 60 Random Glucose 136 H Calcium 9.2 Total Bilirubin 1.3 Direct Bilirubin 0.4 AST 108 H ALT 108 H Alkaline Phosphatase 146 H Ammonia Total Protein 7.9 Albumin 3.9 Globulin 4.0 H Albumin/Globulin Ratio 1.0 TSH 3rd Generation 2.18 Venous Blood Potassium Urine Color Yellow Urine Clarity Slighty-cloudy Urine pH 6.0 Ur Specific [place] 1.015 Urine Protein 100 Urine Glucose (UA) Neg Urine Ketones 20 Urine Blood Small Urine Nitrate Negative Urine Bilirubin Negative Urine Urobilinogen 4.0 H Ur Leukocyte Esterase Neg Urine RBC (Auto) 2 Urine Microscopic WBC 3 Ur Squamous Epith Cells < 1 Urine Bacteria Rare Hyaline Casts 0-2 08/13/18 06:40 WBC RBC Hgb Hct MCV MCH MCHC RDW Plt Count MPV Neut % (Auto) Lymph % (Auto) [place] % (Auto) Eos % (Auto) Baso % (Auto) Neut # (Auto) Lymph # (Auto) [place] # (Auto) Eos # (Auto) Baso # (Auto) pO2 VBG pH VBG pCO2 VBG HCO3 VBG Total CO2 VBG O2 Sat (Calc) VBG Base Excess VBG Potassium Sodium Chloride Glucose Lactate FiO2 Potassium Carbon Dioxide Anion Gap BUN Creatinine Est GFR ( Amer) Est GFR (Non-Af Amer) Random Glucose Calcium Total Bilirubin Direct Bilirubin AST ALT Alkaline Phosphatase Ammonia 20 Total Protein Albumin Globulin Albumin/Globulin Ratio TSH 3rd Generation Venous Blood Potassium Urine Color Urine Clarity Urine pH Ur Specific [place] Urine Protein Urine Glucose (UA) Urine Ketones Urine Blood Urine Nitrate Urine Bilirubin Urine Urobilinogen Ur Leukocyte Esterase Urine RBC (Auto) Urine Microscopic WBC Ur Squamous Epith Cells Urine Bacteria Hyaline Casts Assessment & Plan - Assessment and Plan (Free Text) Assessment: Compression fracture vertebra severe back pain Sciatica osteoporosis hypothyroid anxiety 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
[2018-08-13] MEDS: Enoxaparin 40 mg Syringe SC SCH (15:37)
--- NOTE | 2018-08-13 18:39 | MRI ---
Date of service: 08/13/2018 PROCEDURE: MR LUMBAR SPINE WITHOUT CONTRAST HISTORY: Back pain, r/o fx COMPARISON: None available. TECHNIQUE: Multiecho multiplanar sequences were performed through the lumbar spine without the use of intravenous contrast. FINDINGS: There is degenerative 7 mm anterior listhesis of L5 on S1 and degenerative 6 mm retrolisthesis of L1 on L2. There is normal lumbar lordosis. 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 There is no acute fracture or spondylolysis. There is an old compression fracture in the T12 vertebral body. There are advanced degenerative endplate marrow changes at L1-2 and to a lesser extent at the inferior endplate of T12. Otherwise, there is normal bone marrow signal. There is no evidence of marrow infiltrative process. The conus medullaris terminates at a normal level. There is undulation of the nerve roots of cauda equina due to multilevel spinal canal stenosis. There is multilevel disc degeneration with loss of T2 signal and desiccation of the L1-2 and L5-S1 discs. Evaluation of individual disc levels demonstrate: T12-L1: Right foraminal annular tear and small disc protrusion. No central spinal canal stenosis. Mild bilateral facet arthropathy contribute to mild right neural foraminal narrowing. L1-2: Diffuse posterior disc bulge indents the ventral thecal sac with mild spinal canal stenosis. Mild bilateral facet arthropathy contribute to severe right and moderate left neural foraminal narrowing. L2-3: Diffuse posterior disc bulge in conjunction with moderate ligamentum flavum infolding result in mild spinal canal stenosis. Moderate bilateral facet arthropathy contribute to moderate to severe neural foraminal narrowing. L3-4: Diffuse posterior disc bulge in conjunction with moderate ligamentum flavum infolding result in moderate spinal canal stenosis. Moderate bilateral facet arthropathy contribute to moderate right and moderate to severe left neural foraminal narrowing. L4-5: Diffuse posterior disc bulge in conjunction with severe ligamentum flavum infolding result in severe spinal canal stenosis. Severe bilateral facet arthropathy contribute to moderate right and severe left neural foraminal narrowing. There also a left far lateral disc protrusion which abuts the exiting left L4 nerve root. L5-S1: Diffuse posterior disc bulge in conjunction with moderate ligamentum flavum infolding result in mild spinal canal stenosis. Severe bilateral facet arthropathy contribute to moderate neural foraminal narrowing. OTHER FINDINGS: The paraspinous soft tissues are normal. Imaged portion of the retroperitoneum demonstrates simple cortical cysts in the kidneys, the largest in the right interpolar region. IMPRESSION: 1. No acute fracture or spondylolysis. 2. Advanced multilevel degenerative disc disease superimposed on a congenitally narrow spinal canal, worse at L4-5 with diffuse posterior disc bulge, severe spinal canal stenosis, moderate right and severe left neural foraminal narrowing. Also noted is a left far lateral disc protrusion which abuts the exiting left L4 nerve root.
--- NOTE | 2018-08-13 19:09 | CARD ---
APPROVED REPORT Date of service: 08/12/2018 EKG Measurement Heart [id number] <Conclusion> Normal sinus rhythm Low voltage QRS Nonspecific ST abnormality Abnormal ECG
[2018-08-13 20:25] LABS: INR 1.2; PROTHROMBIN TIME 13.5 Seconds (9.8-13.1)
[2018-08-14] MEDS: Levothyroxine 75 MCG TAB PO SCH (05:42)
[2018-08-14 08:07] LABS: HEMOGLOBIN 15.3 g/dL (12.0-16.0); MEAN CELL VOLUME 86.2 fl (81.0-99.0); MEAN CORPUSCULAR HEMOGLOBIN 29.5 pg (27.0-31.0); MEAN CORPUSCULAR HGB CONC 34.2 g/dL (33.0-37.0); RBC 5.2 Mil/uL (3.80-5.20); RED CELL DISTRIBUTION WIDTH 13.3 % (11.5-14.5); WHITE BLOOD COUNT 9.2 K/uL (4.8-10.8)
[2018-08-14 08:25] LABS: BLOOD UREA NITROGEN 28 mg/dl (7-17); CALCIUM 9.6 mg/dL (8.4-10.2); GFR NON-AFRICAN AMERICAN > 60
[2018-08-14] MEDS: Potassium Chloride 10 mEq ER Tab PO SCH (08:40)
[2018-08-14] MEDS: Enoxaparin 40 mg Syringe SC SCH (08:42)
[2018-08-14] MEDS ORDERED: Naproxen 500 MG TAB PO SCH (09:00)
[2018-08-14] MEDS ORDERED: methylPREDNISolone Depo 80 mg/ml Inj ONE (10:40)
[2018-08-14] MEDS ORDERED: Iohexol 300 10 ML ONE (10:40)
[2018-08-14] MEDS ORDERED: Bupivacaine HCl 0.25% PF (30 ml) Inj ONE (10:41)
[2018-08-14] MEDS ORDERED: Lactated Ringer's 500 ML IV ONE (11:00)
[2018-08-14] MEDS ORDERED: methylPREDNISolone Depo 80 mg/ml Inj IM ONE (11:10)
[2018-08-14] MEDS ORDERED: Bupivacaine 0.25% Inj(30mL) IJ ONE (11:10)
[2018-08-14] MEDS ORDERED: Lidocaine 1% Inj (20ml) IJ ONE (11:10)
[2018-08-14] MEDS ORDERED: Iohexol 300 10 ML IJ ONE (11:10)
--- NOTE | 2018-08-14 11:29 | CP.PCM.PN ---
Subjective - Date & Time of Evaluation Date of Evaluation: 08/14/18 Time of Evaluation: 11:27 - Subjective Subjective: no overnight events Objective - Vital Signs/Intake and Output Vital Signs (last 24 hours): Temp Pulse Resp BP Pulse Ox 97.7 F 83 20 139/73 95 08/14/18 08:18 08/14/18 10:53 08/14/18 08:18 08/14/18 10:53 08/14/18 08:18 - Medications Medications: Current Medications Amlodipine Besylate (Norvasc) 5 mg PO DAILY [facility] Last Admin: 08/14/18 09:54 Dose: 5 mg Aspirin (Ecotrin) 81 mg PO DAILY [facility] Last Admin: 08/14/18 08:39 Dose: 81 mg Enoxaparin Sodium (Lovenox) 40 mg SC DAILY [facility]; Protocol Last Admin: 08/14/18 08:42 Dose: Not Given Famotidine (Pepcid) 20 mg PO BID [facility] Last Admin: 08/14/18 09:54 Dose: 20 mg Levothyroxine Sodium (Synthroid) 75 mcg PO DAILY@0630 [facility] Last Admin: 08/14/18 05:42 Dose: 75 mcg Lidocaine (Lidoderm) 1 ea TD Q24H [facility] Last Admin: 08/13/18 22:36 Dose: 1 ea Loratadine (Claritin) 10 mg PO DAILY [facility] Last Admin: 08/14/18 08:39 Dose: 10 mg Methocarbamol (Robaxin) 500 mg PO HS [facility] Naproxen (Naproxen) 500 mg PO Q12 [facility] Potassium Chloride (Klor-Con 10) 10 meq PO DAILY [facility] Last Admin: 08/14/18 08:40 Dose: 10 meq Propranolol HCl (Inderal) 40 mg PO BID [facility] Last Admin: 08/14/18 10:53 Dose: 40 mg - Labs Labs: 08/14/18 08:00 08/14/18 08:00 PT 13.5 Seconds (9.8-13.1) H 08/13/18 19:53 INR 1.2 08/13/18 19:53 - Head Exam Head Exam: NORMOCEPHALIC - Neck Exam Neck Exam: Normal Inspection - Respiratory Exam Respiratory Exam: Clear to Ausculation Bilateral, NORMAL BREATHING PATTERN - Cardiovascular Exam Cardiovascular Exam: REGULAR RHYTHM - GI/Abdominal Exam GI & Abdominal Exam: Soft, Normal Bowel Sounds Assessment and Plan - Assessment and Plan (Free Text) Assessment: 83 yo female with cirrhosis afp pending viral hep pending non selective beta armen if can tolerate (for primary prophylaxis of variceal bleeding)
--- NOTE | 2018-08-14 11:43 | CP.PCM.PN ---
Subjective - Date & Time of Evaluation Date of Evaluation: 08/14/18 Time of Evaluation: 11:45 - Subjective Subjective: 83 yo woman is s/p right L1-2 transforaminal epidural and right L2, L3, L4 medial branch nerve blocks for right lumbar pain. She also has right sided abdominal pain that is unlikely to be from the lumbar pathology. GI work-up is ongoing. She does have T12 compression fracture but that appears to be chronic, thus no intervention is indicated. Objective - Vital Signs/Intake and Output Vital Signs (last 24 hours): Temp Pulse Resp BP Pulse Ox 97.7 F 83 20 139/73 95 08/14/18 08:18 08/14/18 10:53 08/14/18 08:18 08/14/18 10:53 08/14/18 08:18 - Medications Medications: Current Medications Amlodipine Besylate (Norvasc) 5 mg PO DAILY [facility] Last Admin: 08/14/18 09:54 Dose: 5 mg Aspirin (Ecotrin) 81 mg PO DAILY [facility] Last Admin: 08/14/18 08:39 Dose: 81 mg Enoxaparin Sodium (Lovenox) 40 mg SC DAILY [facility]; Protocol Last Admin: 08/14/18 08:42 Dose: Not Given Famotidine (Pepcid) 20 mg PO BID [facility] Last Admin: 08/14/18 09:54 Dose: 20 mg Levothyroxine Sodium (Synthroid) 75 mcg PO DAILY@0630 [facility] Last Admin: 08/14/18 05:42 Dose: 75 mcg Lidocaine (Lidoderm) 1 ea TD Q24H [facility] Last Admin: 08/13/18 22:36 Dose: 1 ea Loratadine (Claritin) 10 mg PO DAILY [facility] Last Admin: 08/14/18 08:39 Dose: 10 mg Methocarbamol (Robaxin) 500 mg PO HS [facility] Naproxen (Naproxen) 500 mg PO Q12 [facility] Potassium Chloride (Klor-Con 10) 10 meq PO DAILY [facility] Last Admin: 08/14/18 08:40 Dose: 10 meq Propranolol HCl (Inderal) 40 mg PO BID [facility] Last Admin: 08/14/18 10:53 Dose: 40 mg - Labs Labs: 08/14/18 08:00 08/14/18 08:00 PT 13.5 Seconds (9.8-13.1) H 08/13/18 19:53 INR 1.2 08/13/18 19:53 - Back Exam Back Exam: paraspinal tenderness, vertebral tenderness Assessment and Plan (1) Back pain Assessment & Plan: 83 yo woman w/ acute on chronic lower back pain. Lumbar MRI showed old T12 co mpression fracture and diffuse spondylotic changes. Most of the pain appears to be upper lumbar, though patient is a poor historian and can't really clearly explain her area of pain, and L1 radicular pain could radiate into the lower abdomen in theory. I spoke with the son prior to proceeding with injection. - monitor response to epidural + medial branch nerve block - f/u GI rec's - PT eval Status: Acute
--- NOTE | 2018-08-14 13:05 | RAD ---
Date of service: 2018-08-14 12:31:51 PROCEDURE: Intraoperative Fluoroscopy. HISTORY: EPIDURAL FINDINGS: Fluoroscopic assistance was provided. Fluoroscopy time = 41.7 sec. Radiation dose = 19.9 mGy. Please refer to the operative report for additional details.
--- NOTE | 2018-08-14 13:10 | CP.PCM.PN ---
Subjective - Date & Time of Evaluation Date of Evaluation: 08/14/18 Time of Evaluation: 13:11 - Subjective Subjective: Patient in post epidural. No c/o no pain. Will dc home. Objective - Vital Signs/Intake and Output Vital Signs (last 24 hours): Temp Pulse Resp BP Pulse Ox 98.2 F 78 18 121/72 99 08/14/18 11:40 08/14/18 12:25 08/14/18 12:25 08/14/18 12:25 08/14/18 12:25 Intake and Output: 08/14/18 08/14/18 11:59 23:59 Intake Total 100 50 Balance 100 50 - Medications Medications: Current Medications Amlodipine Besylate (Norvasc) 5 mg PO DAILY [facility] Last Admin: 08/14/18 09:54 Dose: 5 mg Aspirin (Ecotrin) 81 mg PO DAILY [facility] Last Admin: 08/14/18 08:39 Dose: 81 mg Enoxaparin Sodium (Lovenox) 40 mg SC DAILY [facility]; Protocol Last Admin: 08/14/18 08:42 Dose: Not Given Famotidine (Pepcid) 20 mg PO BID [facility] Last Admin: 08/14/18 09:54 Dose: 20 mg Levothyroxine Sodium (Synthroid) 75 mcg PO DAILY@0630 [facility] Last Admin: 08/14/18 05:42 Dose: 75 mcg Lidocaine (Lidoderm) 1 ea TD Q24H [facility] Last Admin: 08/13/18 22:36 Dose: 1 ea Loratadine (Claritin) 10 mg PO DAILY [facility] Last Admin: 08/14/18 08:39 Dose: 10 mg Methocarbamol (Robaxin) 500 mg PO HS [facility] Naproxen (Naproxen) 500 mg PO Q12 [facility] Potassium Chloride (Klor-Con 10) 10 meq PO DAILY [facility] Last Admin: 08/14/18 08:40 Dose: 10 meq Propranolol HCl (Inderal) 40 mg PO BID [facility] Last Admin: 08/14/18 10:53 Dose: 40 mg - Labs Labs: 08/14/18 08:00 08/14/18 08:00 PT 13.5 Seconds (9.8-13.1) H 08/13/18 19:53 INR 1.2 08/13/18 19:53 - Constitutional Appears: Chronically Ill - Head Exam Head Exam: ATRAUMATIC, NORMAL INSPECTION, NORMOCEPHALIC - Eye Exam Eye Exam: Normal appearance - ENT Exam ENT Exam: Normal Exam - Neck Exam Neck Exam: Full ROM - Respiratory Exam Respiratory Exam: Clear to Ausculation Bilateral - Cardiovascular Exam Cardiovascular Exam: REGULAR RHYTHM, +S1, +S2 - GI/Abdominal Exam GI & Abdominal Exam: Normal Bowel Sounds - Neurological Exam Neurological Exam: Alert, Awake, CN II-XII Intact, Normal Gait, Oriented x3 - Psychiatric Exam Psychiatric exam: Anxious - Skin Skin Exam: Normal Color Assessment and Plan (1) Back pain Status: Acute (2) Arthritis Status: Chronic (3) Compression fracture of T12 vertebra Status: Chronic (4) HTN (hypertension) Status: Chronic (5) Hypothyroid Status: Chronic (6) Cirrhosis of liver Status: Acute (7) Cirrhosis of liver Status: Chronic
[2018-08-14 15:23] VITALS: RESP 20
[2018-08-14 16:20] VITALS: BP 141/71; PULSE 74
[2018-08-14 18:05] VITALS: TEMP 97.3; O2SAT 96
[2018-08-14] MEDS ORDERED: Methocarbamol 500 MG Tab PO SCH (22:00)
--- NOTE | 2018-08-14 22:04 | OP ---
PROCEDURE DATE: 08/14/2018 PREOPERATIVE DIAGNOSIS: Lumbar spondylosis. POSTOPERATIVE DIAGNOSIS: Lumbar spondylosis. PROCEDURE: Right L1-L2 transforaminal epidural steroid injection and right L2, L3 and L4 medial branch nerve blocks. ANESTHESIOLOGIST: Dr. Whitman. SURGEON: Eitan Escamilla MD TYPE OF ANESTHESIA: Monitored anesthesia care. COMPLICATIONS: None. SPECIMEN: None. DESCRIPTION OF PROCEDURE: Procedure is as follows. After we had a discussion of the procedure with the patient including its risks, benefits, alternatives, outcome data, possibility of no effect or increased pain, the patient consented to the procedure. She denied any recent infection, bleeding tendencies, or being on anticoagulants. Decision was then made to proceed to the OR. I had spoken to the son and obtained his consent over the phone for both anesthesia and the procedure. She had Lovenox yesterday in the afternoon, however, has not had additional dose since then. The patient was placed on the fluoroscopy table in a prone position with two pillows underneath her abdomen. The back was prepped and draped in the usual sterile fashion. A sterile technique was adhered to during the entire procedure. The L1 vertebral level was first identified in the anteroposterior view. Angulation towards the right at approximately 20 degrees was used to maximize the visualization of the right L1 pedicle. The skin overlying the 6 o'clock position of the pedicle was then infiltrated with 1% lidocaine using a 25-gauge needle. Subsequently, a 22-gauge 3.5-inch spinal needle was then incrementally advanced under fluoroscopic guidance until tip of the needle walked into the intervertebral foramen. After satisfactory positioning of the needle, approximately 0.5 mL of Isovue contrast was injected showing appropriate epidural nerve root spread without any signs of CSF or intravenous involvement. At this point, approximately 3 mL of 0.25% Marcaine and Depo-Medrol mixture was injected. Then, the L2, L3 and L4 medial branch nerves block was performed. The nerves are located at the intersection of the superior articular process and the transverse process of the L2, L3 and L4 pedicles on the right side. Those targets were visualized by turning the fluoroscopy towards the right at approximately 15 degrees. The skin overlying the three above targeted areas was then infiltrated with 1% lidocaine using 25-gauge needle. Subsequently, a 22-gauge 3.5-inch spinal needle was then incrementally advanced under fluoroscopic guidance until tip of the needle made bony contact with all three targeted areas. After appropriate placement of all three needles, approximately 3 mL of 0.25% Marcaine and Depo-Medrol mixture was injected. The needles were then removed. The patient's back was cleaned, and dry bandage was applied. The patient was then transferred to the recovery area in good condition without any signs of [employer] toxicity or any neurological deficit. She will be following up in our office in approximately two to four weeks. En-Daren Escamilla MD
--- NOTE | 2018-08-14 22:48 | CON ---
DATE: 08/13/2018 REFERRING DOCTOR: . REASON FOR CONSULTATION: Cirrhosis. HISTORY OF PRESENT ILLNESS: This is an 83-year-old female with history of hypertension, hyperlipidemia, hypothyroidism, TIA, cirrhosis, secondary to viral hepatitis, comes in with severe back pain. GI was called for further workup and management of the cirrhosis. The patient is currently lying in bed comfortably, has back pain, but otherwise no GI complaints. No weight loss, nausea, vomiting, or heartburn. Lying in bed comfortably, in no apparent distress. PAST MEDICAL HISTORY: As above. PAST SURGICAL HISTORY: As above. MEDICATIONS: Reviewed. REVIEW OF SYSTEMS: All other systems have been reviewed and negative apart from the HPI. PHYSICAL EXAMINATION: GENERAL: A pleasant elderly-appearing female, lying in bed comfortably, in no apparent distress. VITAL SIGNS: Here in the hospital are grossly unremarkable. HEENT: Head: Normocephalic, atraumatic. Eyes: Pupils equally reactive to light bilaterally. No conjunctival pallor or icterus. NECK: Supple. Normal range of motion. No lymphadenopathy appreciated. LUNGS: Coarse breath sounds bilaterally. HEART: S1, S2. Regular rate and rhythm. No murmurs appreciated. ABDOMEN: Soft, nontender. Bowel sounds present. No rebound. No guarding. RECTAL: Deferred. EXTREMITIES: Pulses present bilaterally. SKIN: Warm, dry, and intact. NEUROLOGIC: A and O x3. LABORATORY DATA: Labs and radiology have been reviewed. WBC is 3.6, hemoglobin is stable at 14.8. INR 1.2. LFTs are mildly elevated, AST 108, ALT 108, alk phos 146, bilirubin is normal. CAT scan shows cirrhosis and varices throughout. ASSESSMENT AND PLAN: This is an 83-year-old female with decompensated cirrhosis. From gastrointestinal standpoint, viral hepatitis panel pending, acid-fast bacilli is pending. No other workup. Consider beta-armen for the varices. We will follow the patient with you. Thank you for the consult. Yaron Guzman MD/ PhD cc: MD
== END 2018-08-14 18:10 | disposition home health service (06) ==
LOC: H.ER 13:21 → H.ERHOLD 17:34 → H.MEDSURG1 08-13 03:18
PROVIDERS: ADMIT Internal Medicine; ATTEND Internal Medicine
DX: M47.816 Spondylosis without myelopathy or radiculopathy, lumbar region (principal); M48.54XA Collapsed vertebra, not elsewhere classified, thoracic region, initial encounter for fracture; M81.0 Age-related osteoporosis without current pathological fracture; M54.30 Sciatica, unspecified side; K74.69 Other cirrhosis of liver; G89.29 Other chronic pain; K75.9 Inflammatory liver disease, unspecified; E03.9 Hypothyroidism, unspecified; E78.5 Hyperlipidemia, unspecified; I12.9 Hypertensive chronic kidney disease with stage 1 through stage 4 chronic kidney disease, or unspecified chronic kidney disease; N18.9 Chronic kidney disease, unspecified; M19.90 Unspecified osteoarthritis, unspecified site; F41.9 Anxiety disorder, unspecified; F17.210 Nicotine dependence, cigarettes, uncomplicated; Z86.73 Personal history of transient ischemic attack (TIA), and cerebral infarction without residual deficits; Z87.442 Personal history of urinary calculi; Z79.82 Long term (current) use of aspirin; Z86.19 Personal history of other infectious and parasitic diseases
CPT/HCPCS: 36415; 62323; 72148; 74177; 76000; 80048; 80076; 81003; 82105; 82140; 82803; 84443; 85025; 85027; 85610; 87040; 87086; 93005; 96374; 99285; G0378; J1040; J1650; J1885; J2060; J2270; J3010; J7030; J7120; J8540; Q9967